=== PATIENT | female | born 1995 | race Caucasian/White ===

== ENCOUNTER → 2019-10-06 | Outpatient (CLI) | payer OTHER ==
--- NOTE | 2019-10-06 14:56 | REP ---
BILATERAL LOWER EXTREMITY DUPLEX DOPPLER VENOUS ULTRASOUND WITH EVALUATION FOR VENOUS REFLUX: Real-time compression and duplex Doppler interrogation of bilateral lower extremity deep venous systems is performed. Bilaterally, common femoral, superficial femoral, and popliteal veins are fully compressible with transducer pressure and demonstrate normal spontaneous and phasic flow without evidence of deep venous thrombosis. Evaluation for venous reflux on the right demonstrates reflux throughout the deep vein system. There is an anterior accessory greater saphenous vein present without evidence of reflux. There is reflux in the greater saphenous vein at the saphenofemoral junction with a duration of 2.2 seconds, AP diameter of 7 mm, also at the mid thigh with a duration of 2.8 seconds, AP diameter 4 mm and at the knee with a duration of 4.8 seconds, AP diameter 5 mm. There is no reflux on the lesser saphenous vein which measures 3 mm. Evaluation for venous reflux on the left demonstrates reflux throughout the deep vein system. There is no evidence of an anterior accessory greater saphenous vein. There is no reflux in the greater saphenous vein at the saphenofemoral junction which measures 6 mm. There is however reflux in the greater saphenous vein at the mid thigh with a duration of 2.1 seconds, AP diameter 4 mm and also at the knee with a duration of 3.6 seconds, AP diameter 5 mm. There is no reflux in the lesser saphenous vein which measures 4 mm. There is stagnant flow in the lesser saphenous veins bilaterally. Electronically Signed by Elver Lui MD 10/06/2019 03:14 P
== END ==
LOC: M RAD 12:13
PROVIDERS: ATTEND Physician Assistant
DX: R60.9 Edema, unspecified (principal)

== ENCOUNTER 2020-05-01 02:51 | Outpatient (CLI) | payer OTHER ==
[~2020-05-01] VITALS: Ht 165.1 cm; Wt 79.2 kg
[2020-05-01 03:13] VITALS: BP 114/74
[2020-05-01] MEDS ORDERED: PRENTAB9 PO (04:05)
--- NOTE | 2020-05-01 04:51 | IPNPDOC ---
Text Note Date of Service The patient was seen on 05/01/20. NOTE 05/01/20 0443 AM PATIENT AT 33,3 WEEKS HISTORY OF BABY HAVING HICCUPS .PATIENT CONCERNED HAS NO CONTRACTIONS NO VAGINAL BLEEDING NO VAGINAL DISCHARGE NO LOS OF FLUID . RISK FACTORS SOB /PALPITATIONS, GESTATIONAL THROMBOCYTOPENIA,HSV ORAL CERVICAL POLYP. CATEGORY 1 STRIP NO CONTRACTIONS . PLAN PRECAUTIONS GIVEN MAINTAIN APPOINTMENT FT DRUM OB AT 36 WEEKS PATIENT DISCHARGED UNDELIVERED . VS,Fishbone, I+O VS, Fishbone, I+O Vital Signs Date Time Temp Pulse Resp B/P (MAP) Pulse Ox O2 Delivery O2 Flow Rate FiO2 05/01/20 03:13 97.6 99 18 114/74 (87) Heath Jaramillo MD May 01, 2020 04:49
== END 2020-05-01 04:46 | disposition home or self-care (01) ==
LOC: M LDO 02:51
PROVIDERS: ATTEND Obstetrics & Gynecology
DX: O26.893 Other specified pregnancy related conditions, third trimester (principal); Z3A.33 33 weeks gestation of pregnancy
CPT/HCPCS: 59025; G0378; G0463

== ENCOUNTER 2020-06-15 04:15 | Inpatient (IN) | payer OTHER ==
[~2020-06-15] VITALS: Ht 165.1 cm; Wt 83.0 kg
[2020-06-15] VITALS (49 sets, daily range): BP systolic 98–137; BP diastolic 51–79
[~2020-06-15 04:15] MED LIST: PRENTAB9 PO
--- NOTE | 2020-06-15 05:44 | HPEPDOC ---
Obstetrical History & Physical General Date of Admission Jun 15, 2020 at 05:14 History of Present Illness 24yo at 39+6 by LMP c/w 8+1 US presents to L+D for contractions, while in [place] she also SROM (clear). The contractions began yesterday and have been increasing in intensity and duration. She otherwise denied decreased FM or VB. Past Medical History Past Obstetrical History : Past Obstetrical History: Primgravida Past Medical History Medical History oral HSV, lymphedema/lipidemia, history of abnormal pap but no excisional procedure, history of chlamydia in 2017 Surgical History: Other (WTE, theraputic liposuction) Family History Significant Family History: No pertinent family hx Social History Marital Status: Family situation: Spouse/partner home Psychosocial History: No pertinent psych hx * Smoker: non-smoker Alcohol: Denies Drugs: denies Imunizations Tdap status: current Influenza Status: needs Allergies Coded Allergies: adhesive (Verified Allergy, Unknown, 05/01/20) Medications Scheduled No.137/Iron/Folic Acd ( Vitamin Tablet) 1 Each Tablet, 1 TAB PO DAILY Physical Examination Physical Examination GENERAL: Alert and oriented times three. BREAST: . ABDOMEN: Gravid and non-tender to touch. FETUS: Is vertex (VTX) by ultrasound HEART RATE: non-tachycardic LUNGS: no increased WOB EXTREMITIES: No edema. No clonus. Laboratory Data Urine Culture: No Growth Pertinent Laboratoy Data Blood Type: A+ RBC Antibody Screen: Negative HIV: Negative Hepatitis B: Negative Rapid Plasma Reagin: Nonreactive Rubella: Immune Varicella: Immune Chlamydia/Gonorrhea: Negative Group B Streptococcus: Negative Quad Screen Test: Declined Cystic Fibrosis: Negative Glucose Tolerance Test: 115 Anatomy Ultrasound Placenta Location: Posterior Normal Anatomy: Yes Placenta Previa: No Estimated Weight (grams): 3800 Vaginal Examination Dilation: 2cm Effacement: 50% Station: -3 Presentation: Cephalic presentation (by US) Assessment Heart Rate (FHR): 145 Variability: Increased Accelerations: Positive Decelerations: None Tocometer Contractions: Yes Frequency: regular Multi-drug resistant Organism: No history of MDRO Assessment/Plan Assessment 24yo at 39+6 by LMP and 8wk US presents with SROM and early labor. VS normal. CAT I tracing. APC 1. gestational thrombocytopenia - 21SEP PLT 146 2. previously low lying placenta - now resolved 3. cervical polyp at 12 o clock friable 4. 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 lipidema/lymphedema requiring therapeutic liposuction - low threshold for anticoagulation, anticoagulation if requires CD Rh pos, GBS neg, ceph by US, EFW 3800, placenta posterior Plan Admit and orient. Sales Representative Facility Services and consent. Diet: clears Group B Streptococcus (GBS) [negative]. Labs and intravenous (IV) per unit protocol. Counseled on Pitocin augmentation if indicated Lactated Ringers (LR) PRN Anticipate [normal spontaneous delivery ()]. C-S as appropriate. KASEY HAWLEY DO Jun 15, 2020 05:44
[2020-06-15 05:48] LABS: HEMOGLOBIN 12.4 g/dl (12.0-15.5); MEAN CORPUSCULAR HGB CONC 32.6 g/dl (32.0-36.5); MEAN CORPUSCULAR VOLUME 91.8 fl (80.0-96.0); PLATELET COUNT, AUTOMATED 134 10^3/uL (150-450); RED BLOOD COUNT 4.14 10^6/uL (4.00-5.40); WHITE BLOOD COUNT 13.6 10^3/uL (4.0-10.0)
[2020-06-15] MEDS ORDERED: FENTANYL 2MCG/ML ROPIVACAINE 0.2% IN 0.9% NACL 100ML IVBAG As Ordered ONE (06:18)
[2020-06-15] MEDS ORDERED: LR 1,000 ML IV ONE (06:30)
[2020-06-15] MEDS ORDERED: diphenhydrAMINE 50MG/ML VIAL (J1200) IV PRN (07:45)
[2020-06-15] MEDS ORDERED: EPIDURAL COMMENT XX SCH (07:45)
[2020-06-15] MEDS ORDERED: REFRIGERATOR IV KEYS XX PRN (07:45)
[2020-06-15] MEDS ORDERED: EPIDURAL/PCA KEYS XX PRN (07:45)
[2020-06-15] MEDS ORDERED: ePHEDrine SULFATE 25 MG/5 ML(5MG/ML) SYRINGE IV PRN (07:45)
[2020-06-15] MEDS ORDERED: NALOXONE INJ 0.4MG/1ML VIAL (J2310 PER 1MG) IV PRN (07:45)
[2020-06-15] MEDS ORDERED: ONDANSETRON 4MG/2ML VIAL IV PRN ×2 (07:45→23:15)
[2020-06-15] MEDS ORDERED: LACTATED RINGER'S 1000 ML IV PRN (07:45)
[2020-06-15] MEDS: FENTANYL/ROPIVACAINE/NACL BAG 100 ML EPIDURAL SCH ×2 (08:02→13:50)
--- NOTE | 2020-06-15 09:07 | IPNPDOC ---
Text Note Date of Service The patient was seen on 06/15/20. NOTE Accepting care of Ms. Cosby this morning. She's a 25 yo at 39+6 weeks gestation who was admitted for SROM and early labor around 0530 this AM. is uncomplicated. Ms. Cosby reports feeling well and is much more comfortable after receiving an epidural. Cervix: 4/70/-2 by RN exam after epidural placement. FHR Cat I with regular contractions. Ms. Cosby is progressing well on her own power. Continue expectant management. Will recheck in 6 hours if labor slows or sooner if clinically indicated. All patient questions answered. Thor Haynes DO VS,Kadi, I+O VS, Kadi, I+O Laboratory Tests 06/15/20 05:31 Vital Signs Date Time Temp Pulse Resp B/P (MAP) Pulse Ox O2 Delivery O2 Flow Rate FiO2 06/15/20 07:53 99.0 100 20 99 Room Air 06/15/20 07:26 111/61 (78) THOR HAYNES DO Jun 15, 2020 09:07
--- NOTE | 2020-06-15 13:10 | IPNPDOC ---
Text Note Date of Service The patient was seen on 06/15/20. NOTE Presented to room for assessment of progress. Ms. Cosby reports feeling increased pelvic pressure. Cervix: 790/-1. RN exam at ~0930 was 6/80/-2, and 790/-1 at ~1100. FHR is Cat I. Contractions have spaced a little, and there hasn't been significant cervical change since ~0930. I recommended pitocin augmentation for slowed progress and because of her ruptured membranes. We discussed all risks and benefits of pitocin augmentation. Ms. Cosby desires to proceed. All questions answered. Thor Haynes DO VS,Kadi, I+O VS, Kadi, I+O Laboratory Tests 06/15/20 05:31 Vital Signs Date Time Temp Pulse Resp B/P (MAP) Pulse Ox O2 Delivery O2 Flow Rate FiO2 06/15/20 12:04 107 06/15/20 12:03 16 108/57 (74) 100 06/15/20 11:32 98.5 06/15/20 07:53 Room Air THOR HAYNES DO Jun 15, 2020 13:10
[2020-06-15] MEDS ORDERED: OXYTOCIN DRIP 30 UNITS in IV 1 EA IV SCH ×2 (13:15→23:02)
[2020-06-15] MEDS: LR 1,000 ML IV SCH ×2 (13:36→22:58)
--- NOTE | 2020-06-15 16:10 | IPNPDOC ---
Text Note Date of Service The patient was seen on 06/15/20. NOTE Presented to room for assessment of progress. Ms. Cosby endorses feeling increased pressure. Cervix: 9/C/0. There is caput. FHR mostly Cat I with moderate variability and +accels. Possible isolated variable decels after check. Overall reassuring tracing. Ms. Cosby is progressing. Pitocin at 8mU. Will continue to titrate to effect. Recheck in 2 hours or sooner PRN. All patient questions answered. Thor Haynes DO VS,Kadi, I+O VS, Kadi, I+O Laboratory Tests 06/15/20 05:31 Vital Signs Date Time Temp Pulse Resp B/P (MAP) Pulse Ox O2 Delivery O2 Flow Rate FiO2 06/15/20 15:43 90 110/56 (74) 06/15/20 15:29 16 06/15/20 15:00 99.2 Room Air 06/15/20 13:33 99 THOR HAYNES DO Jun 15, 2020 16:10
--- NOTE | 2020-06-15 18:12 | IPNPDOC ---
Text Note Date of Service The patient was seen on 06/15/20. NOTE Presented to room for assessment of progress. Cervix: 9/C/0. There appears to be swelling of the cervix on the right side. head seems asynclitic. FHR remains Cat I. Ms. Cosby has a protracted labor. I am concerned by her slow progress. head position is asynclitic and does not appear to be descending normally or rotating appropriately. I discussed these concerns with Ms. Cosby in detail. Because status is reassuring, I am comfortable allowing her another 1-2 hours to see if she can progress into second stage of labor, which she desires to do at this time. I did offer her immediate section as well. If she remains 9cm in 1-2 hours, I would strongly recommend section. Ms. Cosby understands and agrees. All questions answered. DO ARIANNA Haynes,Kadi, I+O VS, Kadi, I+O Laboratory Tests 06/15/20 05:31 Vital Signs Date Time Temp Pulse Resp B/P (MAP) Pulse Ox O2 Delivery O2 Flow Rate FiO2 06/15/20 16:59 98.9 16 06/15/20 15:43 90 110/56 (74) 06/15/20 15:00 Room Air 06/15/20 13:33 99 THOR HAYNES DO Jun 15, 2020 18:12
--- NOTE | 2020-06-15 19:23 | IPNPDOC ---
Text Note Date of Service The patient was seen on 06/15/20. NOTE Patient with significantly increased pain and pressure. Cervix: C/C/+1. She feels a strong urge to push. FHR is Cat I. Will start pushing. DO [place] VS,Kadi, I+O VS, Joslyne, I+O Laboratory Tests 06/15/20 05:31 Vital Signs Date Time Temp Pulse Resp B/P (MAP) Pulse Ox O2 Delivery O2 Flow Rate FiO2 06/15/20 18:26 98.9 100 18 99 Room Air 06/15/20 18:16 98/54 (69) THOR CEJA DO Jun 15, 2020 19:23
--- NOTE | 2020-06-15 19:59 | IPNPDOC ---
Text Note Date of Service The patient was seen on 06/15/20. NOTE Ms. Cosby had a temp of 100.6 and then repeat of 100.9 >30 minutes later. There is now tachycardia on the tracing. Will start ampicillin and gentamycin for presumed intramniotic infection (chorioamnionitis). PO tylenol for fever. Continue with pushing. DO [place] VS,Kadi, I+O VS, Kadi, I+O Laboratory Tests 06/15/20 05:31 Vital Signs Date Time Temp Pulse Resp B/P (MAP) Pulse Ox O2 Delivery O2 Flow Rate FiO2 06/15/20 18:57 98 126/66 (86) 06/15/20 18:26 98.9 18 99 Room Air THOR CEJA DO Jun 15, 2020 19:59
[2020-06-15] MEDS ORDERED: ACETAMINOPHEN 500 MG TAB PO ONE (20:00)
[2020-06-15] MEDS: AMPICILLIN SOD 2 GM in D5W MINI-BAG PLUS 100 ML IV SCH (20:15)
--- NOTE | 2020-06-15 20:29 | IPNPDOC ---
Text Note Date of Service The patient was seen on 06/15/20. NOTE Patient pushing well to +2 station. She has been pushing for the last hour. FHR has been Cat II for about one hour due to tachycardia, likely secondary to chorioamnionitis. There is still moderate variability. She has received 1000mg PO tylenol and IV gent and IV amp. Will continue with pushing as she is progressing well. DO [place] VS,Kadi, I+O VS, Kadi, I+O Laboratory Tests 06/15/20 05:31 Vital Signs Date Time Temp Pulse Resp B/P (MAP) Pulse Ox O2 Delivery O2 Flow Rate FiO2 06/15/20 18:57 98 126/66 (86) 06/15/20 18:26 98.9 18 99 Room Air THOR CEJA DO Jun 15, 2020 20:29
[2020-06-15] MEDS: GENTAMICIN 400 MG in D5W 100 ML IV SCH (20:52)
--- NOTE | 2020-06-15 23:11 | DNPDOC ---
[facility] Delivery Note Delivery Note DATE OF DELIVERY: [id number] at ~2230 PREDELIVERY DIAGNOSIS: 39+6 weeks gestation and active labor POST DELIVERY DIAGNOSIS: Delivered. PROCEDURE: Spontaneous vaginal delivery SLURRY MIXER: Dr. Haynes ANESTHESIA: Neuraxial (epidural) ESTIMATED BLOOD LOSS: 300 mL. FINDINGS: 9 pound 14 ounce male infant, Score 8/9 DELIVERY SUMMARY: I pushed with Ms. Cosby for the last hour and a half. She made slow, steady progress. My EFW for the baby was ~4000 grams. Preparations were made for a possible shoulder dystocia. She progressed to +4 station but was exhausted and requested assistance. There was a tight band of tissue at her perineum. I counseled her and recommended an episiotomy and she agreed. After the midline episiotomy was made her infant delivered. Presentation was JESS with restitution to LOT. The right anterior shoulder delivered with gentle traction followed easily by the remainder of the body. The infant was dried and s timulated on the field and cried vigorously. The infant was placed on the maternal abdomen per her request. The three vessel umbilical cord was then clamped and cut by the FOB after appropriate time delay and under my direction. Third stage was completed with gentle traction on on the cord and it was productive of an intact placenta. The uterus was firmed with massage and pitoc in was administered IV bolus. Inspection of the cervix, vagina, and perineum revealed the midline episiotomy with no extension into the anal sphincter or rectum and a left vaginal side wall laceration. There was also a periurethral abrasion that was hemostatic and did not require repair. The lacerations were repaired with 2-0 and 3-0 vicryl suture in the usual fashion after injection of lidocaine for additional analgesia. There was excellent cosmesis and hemostasis after the repair. Rectal exam after completion of the repairs demonstrated an intact rectum with no sutures or disruption of the anal sphincter. The fundus was palpated again and was firm. Sponge, instrument, and needle counts were correct X2. Mother and infant stable when I left the room. Baby will be admitted to the NICU due to maternal chorioamnionitis. DO MARCIAL Hadley CHRISTOPHER J. DO Jun 15, 2020 23:11
[2020-06-15] MEDS ORDERED: MEASLES,MUMPS,RUBELLA VACCINE INJ (MMR-II) (90707) SC SCH (23:15)
[2020-06-15] MEDS ORDERED: ACETAMINOPHEN TAB 650MG DOSE (2X325MG) PO PRN (23:15)
[2020-06-15] MEDS ORDERED: BENZOCAINE 20% HEMORRHOIDAL OINTMENT 28GM TUBE TOP PRN (23:15)
[2020-06-15] MEDS ORDERED: ACETAMINOPHEN 500 MG TAB PO PRN (23:15)
[2020-06-15] MEDS ORDERED: LIDOCAINE 1% MDV 20ML VIAL SC ONE (23:15)
[2020-06-15] MEDS ORDERED: RHOGAM 300 MCG (1500 IU) INJ (J2790) IM SCH (23:15)
[2020-06-15] MEDS ORDERED: IBUPROFEN 600MG TAB PO PRN (23:15)
[2020-06-16] VITALS (7 sets, daily range): BP systolic 103–121; BP diastolic 53–81
[2020-06-16] MEDS: AMPICILLIN SOD 2 GM in D5W MINI-BAG PLUS 100 ML IV SCH ×4 (03:08→20:28)
[2020-06-16] MEDS: PRENATAL VITAMINS CHEWABLE TABLET PO SCH (08:22)
[2020-06-16] MEDS: DOCUSATE SODIUM 100MG CAPSULE PO PRN (08:22)
[2020-06-16] MEDS: IBUPROFEN 800 MG TAB PO PRN (10:49)
--- NOTE | 2020-06-16 15:04 | IPNPDOC ---
Progress Note Date of Service: Jun 16, 2020 Progress Note Ms. Cosby is a 25 yo G1 now P1 who is PPD#1 s/p an uncomplicated late yesterday evening after being admitted for labor. She developed chorioamnionitis intrapartum and received gentamycin and ampicillin. She has been afebrile . is in the NICU due to chorioamnionitis diagnosis. This morning Ms. Cosby reports feeling well. She is ambulating a nd tolerating a regular diet. She has minimal pain and lochia. She did not meet her DTV after her gutierrez catheter removal and it was replaced this morning with ~450ml of urine return. She is her infant while he is in the NICU. Vitals - VSS, afebrile, normotensive, non tachycardic General - AAOX3, laying in bed, pleasant and conversant, NAD Abdomen - Soft, non distended. No fundal tenderness Extremities - No edema Overall Ms. Csoby is doing well. Will continue IV abx for 24 hours postp artum. Will also remove gutierrez again this afternoon with DTV. If she again is unable to void on her own, would consider ultimate discharge home with catheter in place or instructions for intermittent self catheterization. will be in NICU for at least 48 hours, so discharge home likely not until day after tomorrow at earliest. All patient questions answered. Thor Haynes DO VS, I&O, 24H, Fishbone Vital Signs/I&O Vital Signs Date Time Temp Pulse Resp B/P (MAP) Pulse Ox O2 Delivery O2 Flow Rate FiO2 06/16/20 06:00 97.0 97 18 121/81 (94) 06/16/20 01:20 98 Room Air I&O- Last 24 Hours up to 6 AM 06/16/20 06:00 Intake Total 3286.3 ml Output Total 2350 ml Balance 936.3 ml THOR HAYNES DO Jun 16, 2020 15:04
[2020-06-16] MEDS: GENTAMICIN 400 MG in D5W 100 ML IV SCH (21:04)
[2020-06-17 06:20] VITALS: BP 122/72
--- NOTE | 2020-06-17 06:52 | IPNPDOC ---
Progress Note Date of Service: Jun 17, 2020 Day#: 2 Progress Note SUBJECT: 25 -year-old 1 now Para 1 status post spontaneous vaginal del dante at 39w6/7 weeks' at approximately male 9 pounds 14 ounces doing well day # 2. she delevoped chorio and received amp and gent for 24 hrs. d/c last night. she has remained afebrile and has no fundal tenderness. she continues to report parenial edema and pain that is controled with ice packs and motrin. she had urinary retention and had a gutierrez for 12 hrs, which was removed last night and she has met her due to void and is now voiding without issues. She has been ambulating, and tolerating regular diet. Breast feeding without issue. Reports lochia is like a normal period. OBJECTIVE: VITAL SIGNS: Within normal limits, afebrile. Alert and oriented times three. normal work of breathing Heart rate: Regular rate ASSESSMENT:25 -year-old 1 now Para 1 status post spontaneous vaginal delivery at 39w6/7 weeks' at approximately male 9 pounds 14 ounces doing well day # 2. she delevoped chorio and received amp and gent for 24 hrs. d/c last night. she has remained afebrile and has no fundal tenderness. she continues to report parenial edema and pain that is controled with ice packs and motrin. she had urinary retention and had a gutierrez for 12 hrs, which was removed last night and she has met her due to void and is now voiding without issues. Vitals within normal limits, afebrile, hemodynamically stable with no evidence of infection. PLAN: 1. Discharge tomorrow as baby is still in NICU 2. Tylenol and Motrin for pain. 3. Encourage breast feeding and ambulation. 4. Copper IUD for contraception for now. 5. Routine PP visit in 6 weeks in clinic. 6. Discussed return precautions at length. VS, I&O, 24H, Fishbone Vital Signs/I&O Vital Signs Date Time Temp Pulse Resp B/P (MAP) Pulse Ox O2 Delivery O2 Flow Rate FiO2 06/17/20 06:20 97.6 97 16 122/72 (89) 100 Room Air I&O- Last 24 Hours up to 6 AM 06/17/20 06:00 Output Total 925 ml Balance -925 ml SARAH CLARK MD Jun 17, 2020 06:52
[2020-06-17] MEDS: PRENATAL VITAMINS CHEWABLE TABLET PO SCH (09:06)
[2020-06-17] MEDS: IBUPROFEN 800 MG TAB PO PRN (19:39)
[2020-06-17] MEDS: DOCUSATE SODIUM 100MG CAPSULE PO PRN (19:39)
[2020-06-18 05:44] VITALS: BP 116/61
[2020-06-18] MEDS: PRENATAL VITAMINS CHEWABLE TABLET PO SCH (09:00)
[2020-06-18] MEDS ORDERED: DOK1CAP7 PO (09:06)
[2020-06-18] MEDS ORDERED: IBUP-1022 PO (09:06)
--- NOTE | 2020-06-18 09:14 | DSES ---
DISCHARGE SUMMARY DATE OF ADMISSION: 06/15/2020 DATE OF DISCHARGE: 06/18/2020 This lady is a 25-year-old, 1, now para 1, admitted at 39 and 6 weeks of gestation with contractions and spontaneous rupture of membranes. She had an epidural in place, delivered a live male , spontaneous vaginal delivery, 9 pounds 14 ounces, scores of 8 and 9 at 1 and 5 minutes, respectively. Her risk factors are she was prophylactically on HSV medications, had an abnormal pap smear, gestational thrombocytopenia. On her second day, we discussed phlebitis, cystitis, mastitis, endometritis, and cellulitis, diet, exercise, pain management, perineal, breast, and wound care. Her admitting hemoglobin was 12.4, hematocrit 38.0, and platelets were 134. Her vital signs on discharge: Her blood pressure is 116/61, respirations are 16, pulse 89, temperature is 98.6. She has no rashes, lesions, or pruritus. No arthralgia, myalgia, no complaint of joint pain. No complaint of cough, wheeze, shortness of breath, or dyspnea on exertion. No nausea, vomiting, diarrhea, or constipation. No urgency, frequency. In summary, we have a term gestation, delivered a live male , improved. 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 edited: 06/20/2020 0735 tkf MTDD
[2020-06-18] MEDS: IBUPROFEN 800 MG TAB PO PRN (10:24)
[2020-06-18] MEDS: DOCUSATE SODIUM 100MG CAPSULE PO PRN (10:25)
== END 2020-06-18 13:50 | disposition home or self-care (01) | DRG 805 ==
LOC: M LDO 04:15 → EEVIPCON 05:14 → M LDI 05:14 → M OBS 06-16 01:15
PROVIDERS: ADMIT Obstetrics & Gynecology; ATTEND Obstetrics & Gynecology
PROC: 10E0XZZ Delivery of Products of Conception, External Approach (ICD-10-PCS; principal; 2020-06-15)
PROC: 0W8NXZZ Division of Female Perineum, External Approach (ICD-10-PCS; 2020-06-15)
PROC: 0HQ9XZZ Repair Perineum Skin, External Approach (ICD-10-PCS; 2020-06-15)
DX: O99.12 Other diseases of the blood and blood-forming organs and certain disorders involving the immune mechanism complicating childbirth (principal); Z37.0 Single live birth; O41.1230 Chorioamnionitis, third trimester, not applicable or unspecified; D69.6 Thrombocytopenia, unspecified; Z3A.39 39 weeks gestation of pregnancy; O75.81 Maternal exhaustion complicating labor and delivery; O63.9 Long labor, unspecified; O70.0 First degree perineal laceration during delivery; R33.9 Retention of urine, unspecified; O99.893 Other specified diseases and conditions complicating puerperium